=== PATIENT | female | born 1985 | race Caucasian/White ===

== ENCOUNTER 2017-05-07 12:45 | Emergency (ER) | payer MEDICAID ==
[~2017-05-07] VITALS: Ht 162.6 cm; Wt 88.9 kg
--- NOTE | 2017-05-07 13:08 | NUR ---
Patient to bed 07.
--- NOTE | 2017-05-07 13:09 | NUR ---
PATIENT PRESENTS TO ED WITH c/o PAINFUL URINATION/FREQUENCY/URGENCY AND ABDOMINAL PAIN X 1 WEEK . DENIES ANY VAGINAL BLEEDING;DENIES N/V/D; SKIN IS PINK/WARM/DRY; AAOX4 WITH EVEN AND STEADY GAIT; LUNGS CLEAR BL; HR EVEN AND REGULAR; PT DENIES ANY FEVER, CP, SOB, OR COUGH AT THIS TIME; PATIENT STATES PAIN OF 10/10 AT THIS TIME;PATIENT POSITIONED FOR COMFORT; HOB ELEVATED; BEDRAILS UP X2; BED DOWN. ER MD MADE AWARE OF PT STATUS.
[2017-05-07 13:12] VITALS: BP 147/99
[2017-05-07] MEDS ORDERED: FERR-252 PO (13:17)
--- NOTE | 2017-05-07 13:46 | NUR ---
STRAIGHT CATHETERIZATION DONE BY [facility];PT TOLERATED WELL PROCEDURE.
--- NOTE | 2017-05-07 13:50 | NUR ---
STRAIGHT CATH DONE;DRAIN 580 ML URINE
--- NOTE | 2017-05-07 13:53 | NUR ---
DR MONZON AT BEDSIDE
[2017-05-07] MEDS ORDERED: SODIUM PHOSPHATE 118 ML ENEM RC ONE (14:05)
[2017-05-07] MEDS ORDERED: PHENAZOPYRIDINE 100 MG TAB PO ONE (14:25)
[2017-05-07 14:36] LABS: APPEARANCE,URINE CLEAR (CLEAR); BILIRUBIN,URINE NEGATIVE (NEGATIVE); BLOOD, URINE NEGATIVE (NEGATIVE); COLOR,URINE YELLOW (YELLOW); LEUKOCYTE ESTERASE ,URINE NEGATIVE (NEGATIVE); NITRITE, URINE NEGATIVE (NEGATIVE); PH,URINE 7.5 (5.0-9.0); UGLUCOSE NEGATIVE (NEGATIVE)
[2017-05-07 15:56] VITALS: BP 145/95
--- NOTE | 2017-05-07 15:56 | NUR ---
Patient discharged with v/s stable. Written and verbal after care instructions given and explained. Patient verbalized understanding. Ambulatory with steady gait. All questions addressed prior to discharge. Advised to follow up with PMD.
== END 2017-05-07 15:56 | disposition home or self-care (01) ==
LOC: MED 12:45
DX: O26.891 Other specified pregnancy related conditions, first trimester (principal); K59.00 Constipation, unspecified; Z3A.01 Less than 8 weeks gestation of pregnancy; Z88.6 Allergy status to analgesic agent
CPT/HCPCS: 76801; 81003; 81025; 99285; C1758; Q0092

== ENCOUNTER 2017-07-28 11:31 | Emergency (ER) | payer MEDICAID, OTHER ==
[~2017-07-28] VITALS: Ht 165.1 cm; Wt 93.4 kg
[~2017-07-28 11:31] MED LIST: FERR-252 PO
[2017-07-28 11:47] VITALS: BP 138/86
--- NOTE | 2017-07-28 12:20 | NUR ---
PATIENT PRESENTS TO ED WITH C/O CONTRACTION LIKE PAIN FOR THE PAST 3 DAYS; PAIN STOPPED LAST NIGHT BUT PATIENT NOW STATES "I JUST WANT TO MAKE SURE MY BABY IS OKAY." HX OF HTN. DENIES ANY BLEEDING;SKIN IS PINK/WARM/DRY; AAOX4 WITH EVEN AND STEADY GAIT; LUNGS CLEAR BL; HR EVEN AND REGULAR; PT DENIES ANY FEVER, CP, SOB AT THIS TIME; PATIENT STATES PAIN OF 0/10 AT THIS TIME; VSS; PATIENT POSITIONED FOR COMFORT; HOB ELEVATED; BEDRAILS UP X2; BED DOWN. ER MD MADE AWARE OF PT STATUS.
--- NOTE | 2017-07-28 12:31 | NUR ---
[facility] AT [facility]
--- NOTE | 2017-07-28 13:21 | NUR ---
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
[2017-07-28 14:21] VITALS: BP 145/93
== END 2017-07-28 14:21 | disposition home or self-care (01) ==
LOC: MED 11:31
DX: O26.892 Other specified pregnancy related conditions, second trimester (principal); R10.30 Lower abdominal pain, unspecified; Z3A.19 19 weeks gestation of pregnancy; Z79.899 Other long term (current) drug therapy; Z88.8 Allergy status to other drugs, medicaments and biological substances
CPT/HCPCS: 76805; 99284; Q0092

== ENCOUNTER 2017-11-11 22:52 | Observation (INO) | payer OTHER ==
[~2017-11-11] VITALS: Ht 165.1 cm; Wt 97.1 kg
[2017-11-11] MEDS ORDERED: CALC500T2 PO (23:03)
[2017-11-11] MEDS ORDERED: ASPI81CT89 PO (23:03)
[2017-11-11] MEDS ORDERED: PREN-546 PO (23:03)
[2017-11-11] MEDS ORDERED: TRA200 PO (23:03)
[2017-11-11] MEDS ORDERED: FERR-252 PO (23:03)
[2017-11-11 23:26] VITALS: BP 181/110
[2017-11-12] MEDS ORDERED: MAG SULF 20 GM/H2O PREMIX DRIP 500 ML IV ONE (00:05)
[2017-11-12] MEDS ORDERED: hydrALAZINE 20 MG/ML VIAL ONE ×2 (00:05→08:03)
[2017-11-12] MEDS ORDERED: MAG SULF 2000 MG/WATER PREMIX 50 ML IV SCH ×2 (00:15→01:00)
[2017-11-12] MEDS ORDERED: hydrALAZINE 20 MG/ML VIAL IVP SCH ×3 (00:15→08:08)
[2017-11-12 00:16] VITALS: BP 192/106
[2017-11-12 00:22] LABS: BASOPHILS # (AUTO) 0.1 K/uL (0.00-0.22); BASOPHILS % (AUTO) 0.7 % (0.0-2.0); EOSINOPHILS # (AUTO) 0.1 K/uL (0-0.4); EOSINOPHILS % (AUTO) 0.7 % (0.0-4.0); HEMATOCRIT 34.8 % (36-48); HEMOGLOBIN 11.8 g/dL (12.0-16.0); LYMPHOCYTES # (AUTO) 2.4 K/uL (2.5-16.5); MEAN CORPUSCULAR HEMOGLOBIN 30 pg (27-31); MEAN CORPUSCULAR HGB CONC 34 g/dL (33-37); MEAN CORPUSCULAR VOLUME 88.5 fL (80-94); MONOCYTES # (AUTO) 0.6 K/uL (0.8-1.0); MONOCYTES % (AUTO) 5.5 % (1.7-9.3); NEUTROPHILS # (AUTO) 8.4 K/uL (1.8-7.7); NEUTROPHILS % (AUTO) 72.1 % (42.2-75.2); PLATELET COUNT (AUTO) 253 K/uL (140-450); RED BLOOD CELL COUNT(AUTO) 3.93 MIL/uL (4.20-5.40); RED CELL DISTRIBUTION WIDTH 13.1 % (11.6-13.7); WHITE BLOOD COUNT (AUTO) 11.6 K/uL (4.8-10.8)
[2017-11-12 00:22] LABS: APPEARANCE,URINE CLEAR (CLEAR); BILIRUBIN,URINE NEGATIVE (NEGATIVE); BLOOD, URINE NEGATIVE (NEGATIVE); COLOR,URINE YELLOW (YELLOW); LEUKOCYTE ESTERASE ,URINE NEGATIVE (NEGATIVE); NITRITE, URINE NEGATIVE (NEGATIVE); UGLUCOSE NEGATIVE (NEGATIVE)
[2017-11-12 00:41] LABS: ANION GAP 13.9 (8-16); CARBON DIOXIDE 23.6 mmol/L (21-32); CREATININE 0.6 mg/dL (0.6-1.3); POTASSIUM 3.5 mmol/L (3.5-5.1)
[2017-11-12 00:46] LABS: ALBUMIN 2.6 g/dL (3.4-5.0); MAGNESIUM 1.5 mg/dL (1.8-2.4); TOTAL BILIRUBIN 0.1 mg/dL (0.0-1.0)
[2017-11-12 00:58] LABS: PROTHROMBIN TIME 9.5 secs (10.8-13.4)
--- NOTE | 2017-11-12 08:41 | NUR ---
PATIENT HAS BEEN SCREENED AND CATEGORIZED LOW NUTRITION RISK. PATIENT WILL BE SEEN WITHIN 7 DAYS OF ADMISSION. 11/18/[address]
[2017-11-12] MEDS ORDERED: LABETALOL 100 MG TAB PO SCH (08:59)
[2017-11-12] MEDS ORDERED: LABETALOL 200 MG TAB PO SCH (09:00)
[2017-11-12] MEDS ORDERED: LABETALOL 100 MG TAB ONE (09:07)
[2017-11-12] MEDS ORDERED: BETAMETH ACET/BETAMETH NA PH 30 MG/5 ML VIAL IM ONE ×2 (09:30→09:32)
[2017-11-12] MEDS ORDERED: BETAMETH ACET/BETAMETH NA PH 30 MG/5 ML VIAL IM SCH (09:35)
== END 2017-11-12 11:00 | disposition short-term general hospital (02) ==
LOC: MLD 22:52
PROVIDERS: ADMIT Obstetrics & Gynecology; ATTEND Obstetrics & Gynecology
DX: O13.3 Gestational [pregnancy-induced] hypertension without significant proteinuria, third trimester (principal); O26.893 Other specified pregnancy related conditions, third trimester; R10.11 Right upper quadrant pain; O32.1XX0 Maternal care for breech presentation, not applicable or unspecified; Z3A.34 34 weeks gestation of pregnancy
CPT/HCPCS: 36415; 76815; 80053; 81003; 83735; 85025; 85384; 85610; 85730; 86886; 86900; 86901; 96365; 96366; 96375; G0378; J0360; J0702; J3475; J7120; Q0092

== ENCOUNTER 2021-03-06 14:52 | Emergency (ER) | payer OTHER ==
[~2021-03-06] VITALS: Ht 165.1 cm; Wt 90.7 kg
[~2021-03-06 14:52] MED LIST changes: +ASPI-1822 PO; +CALC500T2 PO; +PREN-546 PO; +TRA200 PO
[2021-03-06 14:58] VITALS: BP 178/116
--- NOTE | 2021-03-06 15:13 | NUR ---
PT AMBULATED TO BED 9
--- NOTE | 2021-03-06 15:14 | NUR ---
PA OCAMPO AT BEDSIDE EVALUATING PT
--- NOTE | 2021-03-06 15:15 | NUR ---
35 Y/O FEMALE C/O LEFT ARM AND LEFT LEG NUMBNESS XLAST NIGHT S/P STARTING NEW HTN MED. PT STOPPED TAKING CLONIDINE AND BEGAN ATENOLOL PER DR REQUEST. PT REPORTS THAT SHE WOKE UP IN SWEATS WITH NUMBESS TO LEFT SIDE OF BODY. PT AMBULATES WITH STEADY GAIT. EQUAL HAND STRENGTH. 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 PT ALSO REPORTS L CHEST WALL SORENESS AND CALLED HER DOCTOR ABOUT THIS COMPLAINT. PT DENIES PAIN. PT REPORTS BEING VERY ANXIOUS AND NOT BEING ABLE TO SLEEP. PT A/O X4 WITH EVEN AND UNLABORED RESPIRATIONS. PMH: HTN, ANXIETY
--- NOTE | 2021-03-06 15:34 | NUR ---
RAD AT BEDSIDE
[2021-03-06 15:59] LABS: BASOPHILS # (AUTO) 0.1 K/uL (0.00-0.22); BASOPHILS % (AUTO) 0.6 % (0.0-2.0); EOSINOPHILS % (AUTO) 0.3 % (0.0-4.0); HEMATOCRIT 34.4 % (36-48); HEMOGLOBIN 11.1 g/dL (12.0-16.0); LYMPHOCYTES # (AUTO) 2.5 K/uL (2.5-16.5); LYMPHOCYTES % (AUTO) 26.8 % (20.5-51.1); MEAN CORPUSCULAR HEMOGLOBIN 24 pg (27-31); MEAN CORPUSCULAR HGB CONC 32 g/dL (33-37); MEAN CORPUSCULAR VOLUME 75.2 fL (80-94); MONOCYTES # (AUTO) 0.5 K/uL (0.8-1.0); MONOCYTES % (AUTO) 5.2 % (1.7-9.3); NEUTROPHILS # (AUTO) 6.3 K/uL (1.8-7.7); NEUTROPHILS % (AUTO) 67.1 % (42.2-75.2); PLATELET COUNT (AUTO) 390 K/uL (140-450); RED BLOOD CELL COUNT(AUTO) 4.58 MIL/uL (4.20-5.40); RED CELL DISTRIBUTION WIDTH 18.8 % (11.6-13.7); WHITE BLOOD COUNT (AUTO) 9.4 K/uL (4.8-10.8)
[2021-03-06] MEDS ORDERED: NACL 0.9% 1,000 ML IV ONE (16:25)
--- NOTE | 2021-03-06 16:33 | NUR ---
PT AMBULATED TO RESTROOM FOR URINE SAMPLE
[2021-03-06 16:40] LABS: ALBUMIN 4.4 g/dL (3.4-5.0); ANION GAP 14.2 (8-16); CARBON DIOXIDE 27.5 mmol/L (21-32); POTASSIUM 3.7 mmol/L (3.5-5.1); TOTAL BILIRUBIN 0.1 mg/dL (0.0-1.0)
[2021-03-06 17:08] LABS: CREATININE 0.9 mg/dL (0.6-1.3)
[2021-03-06 17:44] VITALS: BP 144/85
--- NOTE | 2021-03-06 18:08 | NUR ---
Patient discharged with v/s stable. Written and verbal after care instructions ABOUT PARESTHESIA, INSOMNIA, AND PALPATIONS given and explained. Patient verbalized understanding. Ambulatory with steady gait. All questions addressed prior to discharge. Advised to follow up with PMD.
== END 2021-03-06 18:08 | disposition home or self-care (01) ==
LOC: MED 14:52
DX: R20.2 Paresthesia of skin (principal); R00.2 Palpitations; F41.9 Anxiety disorder, unspecified; I10 Essential (primary) hypertension; Z88.5 Allergy status to narcotic agent; Z88.8 Allergy status to other drugs, medicaments and biological substances; Z79.899 Other long term (current) drug therapy; Z79.82 Long term (current) use of aspirin
CPT/HCPCS: 36415; 71045; 80053; 81002; 81025; 84484; 85025; 93005; 96360; 99285; J7030

== ENCOUNTER 2021-03-23 12:55 | Emergency (ER) | payer OTHER ==
[~2021-03-23] VITALS: Ht 165.1 cm; Wt 91.6 kg
[2021-03-23 12:59] VITALS: BP 195/141
--- NOTE | 2021-03-23 13:02 | NUR ---
PT W/C ASSISTED TO ER BED 11.
--- NOTE | 2021-03-23 13:06 | NUR ---
TATYANA WELLER WITH PT FOR FURTHER EVALUATION.
[2021-03-23] MEDS ORDERED: LIDOCAINE MPF 1% 5 ML ONE (13:08)
[2021-03-23] MEDS ORDERED: IBUPROFEN 600 MG TAB PO ONE (13:10)
[2021-03-23] MEDS ORDERED: BACITRACIN OINT 500 UNITS/GM PKT TP ONE (13:10)
[2021-03-23] MEDS ORDERED: LIDOCAINE MPF 1% 10 MG/ML VIAL INJ ONE (13:10)
[2021-03-23] MEDS ORDERED: IBUPROFEN 600 MG TAB ONE (13:11)
[2021-03-23] MEDS ORDERED: CLONIDINE HYDROCHLORIDE 0.1 MG TAB PO ONE (13:20)
--- NOTE | 2021-03-23 13:24 | NUR ---
C/O RIGHT FOOT LAC WOUND S/P FALL X TODAY. BP 195/141 AT THIS TIME. DENIES HEADACHE OR DIZZINESS AT THIS TIME. PMH: HTN
--- NOTE | 2021-03-23 13:24 | NUR ---
TATYANA WELLER AT PT BEDSIDE FOR PROCEDURE.
[2021-03-23] MEDS ORDERED: HYDROcodone/APAP 5/325 MG 1 TAB TAB ONE (13:32)
--- NOTE | 2021-03-23 13:36 | NUR ---
BEHAVIORAL ASSISTANT AT PT BEDSIDE.
[2021-03-23] MEDS ORDERED: NAPR-54 PO (13:41)
[2021-03-23 14:10] VITALS: BP 142/78
== END 2021-03-23 14:10 | disposition home or self-care (01) ==
LOC: MED 12:55
DX: S91.311A Laceration without foreign body, right foot, initial encounter (principal); I10 Essential (primary) hypertension; Z79.899 Other long term (current) drug therapy; Z79.82 Long term (current) use of aspirin; Z88.5 Allergy status to narcotic agent; Z88.8 Allergy status to other drugs, medicaments and biological substances; W22.8XXA Striking against or struck by other objects, initial encounter; Y93.89 Activity, other specified; Y92.89 Other specified places as the place of occurrence of the external cause; Y99.8 Other external cause status
CPT/HCPCS: 12001; 73630; 99284; J2001

== ENCOUNTER 2022-02-16 08:20 | Emergency (ER) | payer OTHER ==
[~2022-02-16] VITALS: Ht 165.1 cm; Wt 93.0 kg
[~2022-02-16 08:20] MED LIST changes: +NAPR-54 PO
[2022-02-16 08:25] VITALS: BP 174/110
--- NOTE | 2022-02-16 08:32 | NUR ---
Pt ambulated to bed 07.
--- NOTE | 2022-02-16 08:36 | NUR ---
DR DIAZ AT BEDSIDE EVALUATING PT
[2022-02-16] MEDS ORDERED: KETOROLAC 15 MG/ML VIAL IM ONE (08:55)
--- NOTE | 2022-02-16 08:56 | NUR ---
LAB AT BEDSIDE
--- NOTE | 2022-02-16 08:58 | NUR ---
XRAY AT BEDSIDE
[2022-02-16] MEDS ORDERED: LIDOCAINE 5% 1 EA PATCH TP SCH (09:00)
[2022-02-16] MEDS ORDERED: MORPHINE SULFATE 4 MG/ML SYR IVP ONE ×3 (09:05→12:15)
[2022-02-16 09:07] LABS: BASOPHILS # (AUTO) 0.1 K/uL (0.00-0.22); BASOPHILS % (AUTO) 1.4 % (0.0-2.0); EOSINOPHILS # (AUTO) 0.2 K/uL (0-0.4); EOSINOPHILS % (AUTO) 2.9 % (0.0-4.0); HEMATOCRIT 28.8 % (36-48); LYMPHOCYTES # (AUTO) 1.8 K/uL (2.5-16.5); LYMPHOCYTES % (AUTO) 23.2 % (20.5-51.1); MEAN CORPUSCULAR HEMOGLOBIN 22 pg (27-31); MEAN CORPUSCULAR HGB CONC 31 g/dL (33-37); MEAN CORPUSCULAR VOLUME 70.2 fL (80-94); MONOCYTES # (AUTO) 0.4 K/uL (0.8-1.0); MONOCYTES % (AUTO) 5.7 % (1.7-9.3); NEUTROPHILS # (AUTO) 5.2 K/uL (1.8-7.7); NEUTROPHILS % (AUTO) 66.8 % (42.2-75.2); PLATELET COUNT (AUTO) 457 K/uL (140-450); RED BLOOD CELL COUNT(AUTO) 4.11 MIL/uL (4.20-5.40); RED CELL DISTRIBUTION WIDTH 17.9 % (11.6-13.7); WHITE BLOOD COUNT (AUTO) 7.8 K/uL (4.8-10.8)
[2022-02-16] MEDS ORDERED: MORPHINE SULFATE 4 MG/ML SYR ONE ×2 (09:12→10:42)
--- NOTE | 2022-02-16 09:23 | NUR ---
US AT BEDSIDE
[2022-02-16] MEDS ORDERED: KETOROLAC 30 MG/ML VIAL ONE (09:27)
[2022-02-16 09:29] LABS: ALBUMIN 3.6 g/dL (3.4-5.0); ANION GAP 15.3 (8-16); ASPARTATE AMINOTRANSFERASE 15 U/L (15-37); CARBON DIOXIDE 23.5 mmol/L (21-32); CHLORIDE 105 mmol/L (98-107); CREATININE 0.9 mg/dL (0.6-1.3); GFR ARICAN-AMERICAN 90 mL/min (>90); GLUCOSE 103 mg/dL (74-106); POTASSIUM 3.8 mmol/L (3.5-5.1); SODIUM SERUM 140 mmol/L (136-145); TOTAL BILIRUBIN 0.2 mg/dL (0.0-1.0); UREA NITROGEN, BLOOD 11 mg/dL (7-18)
[2022-02-16] MEDS ORDERED: KETOROLAC 30 MG/ML VIAL IVP ONE (09:30)
--- NOTE | 2022-02-16 09:30 | NUR ---
36YO FEMALE PT C/O INCREASED SHARP 10/10 JASON RIB AND MID CHEST PAIN XTODAY. STATES PAIN X1WEEK AND AT MOST ON MOVEMENT / TENDER TO TOUCH. DENIES RELIEF AFTER TAKING IBUPROFEN. REPORTS RECENTLY HAVING BRONCHITIS THAT LASTED [id number]. DENIES RECENT INJURY ,N/V/D, SOB, FEVER OR CHILLS. PT AAOX4, RESPIRATIONS EVEN AND UNLABORED. 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 HX: HTN NKA
[2022-02-16] MEDS ORDERED: HYDROcodone/APAP 5/325 MG 1 TAB TAB PO ONE (10:50)
[2022-02-16] MEDS ORDERED: HYDROcodone/APAP 5/325 MG 1 TAB TAB ONE (10:51)
--- NOTE | 2022-02-16 11:02 | NUR ---
pt ambulatory to restroom
--- NOTE | 2022-02-16 11:06 | NUR ---
pt ambulated back to room
[2022-02-16] MEDS ORDERED: ONDANSETRON 4 MG/2 ML VIAL IVP ONE (12:15)
[2022-02-16 12:26] LABS: LIPASE 91 U/L (73-393)
[2022-02-16] MEDS ORDERED: NAPR-54 PO (13:32)
[2022-02-16] MEDS ORDERED: LID5T TP (13:33)
--- NOTE | 2022-02-16 13:45 | NUR ---
IV removed, catheter intact and site benign. Applied folded 4x4 gauze and tape to stop bleeding.
[2022-02-16 13:46] VITALS: BP 141/90
--- NOTE | 2022-02-16 13:46 | NUR ---
Patient discharged with v/s stable. Written and verbal after care instructions ABOUT COSTOCHONDRITIS given and explained. Patient alert, oriented and verbalized understanding of instructions. Ambulatory with steady gait. All questions addressed prior to discharge. ID band removed. Patient advised to follow up with PMD. Rx of LIDOCAINE PATCH AND NAPROXEN given. Patient educated on indication of medication including possible reaction and side effects. Opportunity to ask questions provided and answered.
== END 2022-02-16 13:46 | disposition home or self-care (01) ==
LOC: MED 08:20
DX: S29.011A Strain of muscle and tendon of front wall of thorax, initial encounter (principal); R10.11 Right upper quadrant pain; Z87.09 Personal history of other diseases of the respiratory system; I10 Essential (primary) hypertension; Z98.890 Other specified postprocedural states; Z79.899 Other long term (current) drug therapy; Z79.1 Long term (current) use of non-steroidal anti-inflammatories (NSAID); Z79.82 Long term (current) use of aspirin; Z88.8 Allergy status to other drugs, medicaments and biological substances; Z88.5 Allergy status to narcotic agent; X58.XXXA Exposure to other specified factors, initial encounter; Y92.89 Other specified places as the place of occurrence of the external cause; Y93.89 Activity, other specified; Y99.8 Other external cause status
CPT/HCPCS: 36415; 71045; 76705; 80053; 83690; 84484; 84702; 85025; 93005; 96374; 99284; J1885; J2270; Q0092; J2405

== ENCOUNTER 2022-12-16 14:37 | Emergency (ER) | payer OTHER ==
[~2022-12-16] VITALS: Ht 162.6 cm; Wt 86.2 kg
[~2022-12-16 14:37] MED LIST changes: +LID5T TP
[2022-12-16 14:45] VITALS: BP 172/103; PULSE 91; RESP 20; TEMP 98; O2SAT 98
[2022-12-16 16:20] VITALS: BP 140/88; PULSE 88; RESP 20; TEMP 98
--- NOTE | 2022-12-16 16:20 | NUR ---
Patient discharged with v/s stable. Written and verbal after care instructions for CONTUSION given and explained. Patient verbalized understanding. Ambulatory with steady gait. All questions addressed prior to discharge. Advised to follow up with PMD. COPY OF US PROVIDED
[2022-12-16 16:25] VITALS: O2SAT 98
--- NOTE | 2022-12-16 16:25 | NUR ---
The patient's care was reviewed and supervised by [place] [facility], RN.
== END 2022-12-16 16:20 | disposition home or self-care (01) ==
LOC: MED 14:37
DX: S80.12XA Contusion of left lower leg, initial encounter (principal); Z88.8 Allergy status to other drugs, medicaments and biological substances; Z79.899 Other long term (current) drug therapy; X58.XXXA Exposure to other specified factors, initial encounter; Y93.89 Activity, other specified; Y92.89 Other specified places as the place of occurrence of the external cause; Y99.8 Other external cause status
CPT/HCPCS: 73562; 93971; 99284; Q0092